=== PATIENT | female | born 1940 | race Caucasian/White ===

== ENCOUNTER 2017-03-14 20:35 | Emergency (ER) | payer OTHER, MEDICAID | END 2017-03-14 23:22 | disposition home or self-care (01) | LOC: FTE 23:22 | DX: I83.891 Varicose veins of right lower extremity with other complications (principal); I10 Essential (primary) hypertension; J45.909 Unspecified asthma, uncomplicated; Z79.01 Long term (current) use of anticoagulants | CPT/HCPCS: 99282 ==